=== PATIENT | female | born 1960 | race Hispanic/Latino ===

== ENCOUNTER → 2019-10-14 | Outpatient (CLI) | payer BC ==
[~2019-10-14] MED LIST: IOPAMIDOL 300 MG/ML 15ML VIAL IT ONE; LIDOCAINE HCL 1% LOCAL INJ 20 ML VIAL ONE; ONDANSETRON HCL 4 MG ORAL DISINTEGRATING TAB ONE; TRAMADOL HCL 50 MG TAB ONE
--- NOTE | 2019-10-14 15:08 | Diagnostic Imaging Report ---
CT CERVICAL SPINE W HISTORY: Spondylosis, cervical; neck pain radiating to right hand COMPARISON: None. TECHNIQUE: CT of the cervical spine was performed after the administration of intrathecal contrast. Sagittal and coronal reformations were created. One or more of the following dose reduction techniques were used: Automated exposure control, adjustment of the mA and/or kV according to patient size, and/or utilization of iterative reconstruction technique. FINDINGS: ACDF changes from C5 to C7 are present. Associated hardware streak artifacts obscure some details. Cervical lordosis is straightened. There is no significant scoliosis No definite acute fracture or compression deformity is seen. The craniocervical junction is intact. The thecal sac is well opacified. The right ventral cord is mildly indented by a posterior disc osteophyte complex at C5-C6. The cord is otherwise normal in morphology. The paravertebral and paraspinal soft tissues are unremarkable. There are mild spondylotic changes above and below the fusion level. Mild atlantoaxial arthrosis is present as well. C2-C3: No significant canal or foraminal stenosis. C3-C4: Mild canal stenosis due to disc bulge. Mild left foraminal stenosis due to uncovertebral and facet arthrosis. No significant right foraminal stenosis. C4-C5: Mild canal stenosis due to disc bulge. Mild to moderate bilateral foraminal stenoses due to uncovertebral and facet arthrosis. C5-C6: Fusion level. Mild canal stenosis due to right posterior disc osteophyte complex. Mild to moderate left foraminal stenosis due to uncovertebral and facet arthrosis. No significant right foraminal stenosis. C6-C7: Fusion level. Mild canal stenosis due to posterior disc osteophyte complex. No significant foraminal stenosis. C7-T1: Grade 1 anterolisthesis of C7 on T1 is due to facet arthrosis. Mild canal stenosis due to uncovered disc bulge. Mild to moderate left foraminal stenoses due to uncovered disc bulge and facet arthrosis. IMPRESSION: 1. No acute osseous abnormalities. 2. ACDF changes from C5 to C7. 3. Mild spondylosis above and below the fusion level. Grade 1 anterolisthesis of C7 on T1 is due to facet arthrosis. 4. Mild degenerative canal stenoses from C3-C4 to C7-T1. Associated right posterior disc osteophyte complex at C5-C6 slightly indents the right ventral cord. 5. Mild to moderate multilevel bilateral degenerative foraminal stenoses as described above. Signed by: Dr. Dorian Gordon M.D. on 10/14/2019 3:05 PM
--- NOTE | 2019-10-14 15:19 | Diagnostic Imaging Report ---
PROCEDURE: Fluoroscopically guided myelogram Procedural Personnel Attending physician(s): Salbador Horton MD Fellow physician(s): None Resident physician(s): None Advanced practice provider(s): None Pre-procedure diagnosis: Neck pain Post-procedure diagnosis: Same Indication: Pre-operative CT myelogram Additional clinical history: None Complications: No immediate complications. IMPRESSION: Fluoroscopically guided myelogram. PROCEDURE SUMMARY: - Fluoroscopically guided myelogram at L2-3. PROCEDURE DETAILS: Pre-procedure Consent: Informed consent for the procedure including risks, benefits and alternatives was obtained and time-out was performed prior to the procedure. Preparation: The site was prepared and draped using maximal sterile barrier technique including cutaneous antisepsis. Anesthesia/sedation Level of anesthesia/sedation: Local 1% lidocaine Lumbar Puncture Fur Stylist images were obtained. Under image guidance and via a translaminar approach, a needle was advanced to the thecal space. Contrast was administered. Target level: L2-3 Radiation Dose Fluoroscopy time (minutes): 5.1 Reference air kerma (mGy): 27.1 Additional Details Additional description of procedure: None Equipment details: None Specimens removed: None Estimated blood loss (mL): Less than 10 Attestation Signer name: Salbador Horton MD I attest that I was present for the entire procedure. I reviewed the stored images and agree with the report as written. Signed by: Salbador Horton MD on 10/14/2019 3:16 PM
== END ==
LOC: DX 11:08
PROVIDERS: ATTEND Specialist
DX: M47.892 Other spondylosis, cervical region (principal)
CPT/HCPCS: 62302; 72126; J2001; Q0162; Q9967